=== PATIENT | male | born 2000 | race Two or more races ===

== ENCOUNTER → 2024-10-12 | Emergency (ER) | payer OTHER ==
[~2024-10-12] VITALS: Ht 172.7 cm; Wt 86.2 kg
[~2024-10-12] MED LIST: FAMOTIDINE/PF 20 MG/2 ML VIAL ONE; FAMOtidine 10 MG/ML (4ML VIAL) IV ONE; KETOROLAC TROMETHAMINE 30 MG VIAL IV ONE; KETOROLAC TROMETHAMINE 30 MG VIAL ONE; NORFLEX100MG PO; PEPCID AC20 MG PO
[2024-10-12 17:12] LABS: HEMATOCRIT 46.3 % (39.0-48.0); HEMOGLOBIN 15.8 g/dL (13-16.00); MEAN CORPUSCULAR HEMOGLOBIN 30.4 pg (27.00-32.0); MEAN CORPUSCULAR HGB CONC 34.1 g/dl (32.0-36.0); PLATELET COUNT 261 K/uL (150-450); RED CELL DISTRIBUTION WIDTH 12.5 % (11.5-14.5)
[2024-10-12 17:25] LABS: INR 1.01; PARTIAL THROMBOPLASTIN TIME 30.6 SECONDS (22.0-34.0)
[2024-10-12 17:29] LABS: ALBUMIN 4.1 gm/dL (3.4-5.0); BILIRUBIN TOTAL 0.38 mg/dL (0.3-1.2); CALCIUM 8.9 mg/dL (8.5-10.1); CREATININE SERUM 0.93 mg/dL (0.70-1.30); GFR 101.6; POTASSIUM 4.25 mEq/L (3.5-5.1); TOTAL PROTEIN 8.1 gm/dL (6.4-8.2)
[2024-10-12 18:16] LABS: URINE APPEARANCE Clear; URINE BILIRRUBIN Negative (NEGATIVE); URINE BLOOD Negative; URINE COLOR Yellow; URINE GLUCOSE Negative (NEGATIVE); URINE KETONE Negative (NEGATIVE); URINE LEUKOCYTE Negative; URINE NITRATE Negative; URINE PROTEIN Negative (NEGATIVE)
[2024-10-12 18:21] LABS: URINE WBC 4.4 uL (0.0-23.2)
[2024-10-12 18:28] LABS: URINE BACTERIA 2.4 uL (0.0-1933); URINE EPITHELIAL CELLS 0.4 uL (0.0-38.8); URINE RBC 1.6 uL (0.0-20.8)
== END | disposition home or self-care (01) ==
LOC: ER 13:18
PROVIDERS: General Practice
DX: R53.81 Other malaise (principal); R10.31 Right lower quadrant pain
CPT/HCPCS: 36415; 74177; Q9965